=== PATIENT | male | born 1965 | race Two or more races ===

== ENCOUNTER → 2019-02-10 | Outpatient (CLI) | payer OTHER | LOC: YHH 14:23 ==

== ENCOUNTER 2021-02-21 11:04 | Observation (INO) | payer OTHER ==
[2021-02-21 12:50] LABS: VENOUS BASE EXCESS 4.3 mmol/L (-2-2); VENOUS O2 SATURATION 57.7 % (70-80); VENOUS PCO2 60.4 mmHg (38-52); VENOUS PH 7.346 (7.310-7.410)
[2021-02-21 12:55] LABS: HEMATOCRIT 38.7 % (35.4-49); MCH 31.5 pg (25.7-33.7); MCHC 33.7 g/dl (32.0-35.9); MEAN CELL VOLUME 93.5 fl (80-96); MEAN PLT VOLUME 9.6 fl (7.5-11.1); PLATELET COUNT 119 10^3/uL (134-434); RBC 4.14 M/mm3 (4.00-5.60); WHITE BLOOD COUNT 8.9 K/mm3 (4.0-10.0)
[2021-02-21 13:02] LABS: INR 1.12 (0.83-1.09); PROTHROMBIN TIME (PATIENT) 13.5 SEC (9.7-13.0)
[2021-02-21 13:04] LABS: ACTIVATED PTT 28.4 SECONDS (25.2-36.5)
[2021-02-21 13:13] LABS: CHLORIDE 99 mmol/L (98-107); SODIUM 137 mmol/L (136-145)
[2021-02-21 13:16] LABS: ALBUMIN 3.6 g/dl (3.4-5.0); ANION GAP 6 MMOL/L (8-16); BLOOD UREA NITROGEN 15.1 mg/dL (7-18); CO2 32 mmol/L (21-32); GLUCOSE,RANDOM 98 mg/dL (74-106)
[2021-02-21 13:19] LABS: BILIRUBIN,TOTAL 0.8 mg/dL (0.2-1); CREATININE 0.9 mg/dL (0.55-1.3); SGOT/AST 95 U/L (15-37); SGPT/ALT 43 U/L (13-61); TOT PROT 8.1 g/dl (6.4-8.2)
[2021-02-21 13:21] LABS: ALK PHOS 86 U/L (45-117)
[2021-02-21 13:24] LABS: N-TERMINAL BNP 113.2 pg/ml (5-125)
[2021-02-21] MEDS ORDERED: ALBUTEROL SO4 2.5/IPRATROPIUM 0.5 INH SOL 3 ML VIAL.NEB. NEB ONE ×2 (14:05)
[2021-02-21] MEDS ORDERED: ALBUTEROL SO4 0.083% IH SOL 2.5 MG/3 ML VIAL.NEB. NEB PRN (20:40)
[2021-02-21] MEDS: methylPREDNISolone NA SUCC 40 MG/1 ML VIAL IVPUSH SCH (21:45)
[2021-02-21 22:34] VITALS: BMI 19.6
[2021-02-22] MEDS: methylPREDNISolone NA SUCC 40 MG/1 ML VIAL IVPUSH SCH ×2 (02:38→10:56)
[2021-02-22 06:48] VITALS: TEMP 97.7
[2021-02-22] MEDS ORDERED: clonazePAM 0.5 MG TABLET PO SCH (10:00)
[2021-02-22] MEDS ORDERED: amLODIPine BESYLATE 10 MG TABLET (FP) PO SCH (10:00)
[2021-02-22] MEDS ORDERED: ENOXAPARIN NA (PORCINE) 40 MG/0.4 ML DISP.SYRIN SQ SCH (10:00)
[2021-02-22] MEDS ORDERED: methaDONE HCL 40 MG DISPERSABLE TABLET PO ONE (10:45)
[2021-02-22 11:05] VITALS: BP 138/75; PULSE 89
[2021-02-23] MEDS ORDERED: methaDONE HCL 40 MG DISPERSABLE TABLET PO SCH (06:00)
== END 2021-02-22 16:18 | disposition left against medical advice (07) ==
LOC: JER 11:04 → JERBED 18:21 → UNDOADMOB 18:21 → INTOOBSV 18:21 → J5S 21:23 → JERBED 21:23 → J5S 02-22 09:24 → JERBED 02-22 09:24
PROC: 3E0F7GC Introduction of Other Therapeutic Substance into Respiratory Tract, Via Natural or Artificial Opening (ICD-10-PCS; principal; 2021-02-22)
PROC: 3E023GC Introduction of Other Therapeutic Substance into Muscle, Percutaneous Approach (ICD-10-PCS; 2021-02-22)
PROC: 3E033GC Introduction of Other Therapeutic Substance into Peripheral Vein, Percutaneous Approach (ICD-10-PCS; 2021-02-22)
DX: R41.82 Altered mental status, unspecified (principal); R09.02 Hypoxemia; F10.10 Alcohol abuse, uncomplicated; Z85.21 Personal history of malignant neoplasm of larynx; F39 Unspecified mood [affective] disorder; I11.9 Hypertensive heart disease without heart failure; B19.20 Unspecified viral hepatitis C without hepatic coma; F41.8 Other specified anxiety disorders; F20.9 Schizophrenia, unspecified; F19.10 Other psychoactive substance abuse, uncomplicated; F17.210 Nicotine dependence, cigarettes, uncomplicated
CPT/HCPCS: 36415; 70450-TC; 71045-TC-FY; 71250-TC; 80053; 80307; 82140; 82550; 82553; 82803; 82962; 83880; 84443; 84484; 85025; 85379; 85610; 85730; 93005; 93010; 94640; 96372; 96374; 99285-25; C9803; G0378; U0003; U0005